=== PATIENT | female | born 1980 | race Caucasian/White ===

== ENCOUNTER 2017-10-04 17:43 | Emergency (ER) | payer OTHER ==
[~2017-10-04] VITALS: Ht 167.6 cm; Wt 68.0 kg
[2017-10-04 17:46] VITALS: BP 139/88; PULSE 68; RESP 18; TEMP 98.3; O2SAT 98
[2017-10-04] MEDS ORDERED: DIAZ5TAB PO (21:00)
[2017-10-04] MEDS ORDERED: OXYC1CAP PO (21:00)
[2017-10-04] MEDS ORDERED: TOPA50TA7 PO (21:00)
[2017-10-04] MEDS ORDERED: SODIUM CHLOR 0.9% 1000 ML INJ 1,000 ML IV ONE (21:02)
--- NOTE | 2017-10-04 21:08 | PD ---
HPI Chief Complaint: Headache Time Seen by Provider: 20:56 Travel History International Travel<30 days: No Contact w/Intl Traveler<30days: No Traveled to known affect area: No History of Present Illness HPI This is a 37-year-old female with history of migraines who presents for evaluation of the same. She reports that throughout the day today she has had a right sided frontal throbbing constant headache, consistent with her migraines but worse than usual. She tried using her regular medications including oxycodone, tenacity and, butalbital as well as her regular maintenance Topamax however her migraine persisted and this is what prompted evaluation. She reports that she has had a 30 year history of migraines, approximately 5 times a month, usually worse during her menstrual period. She reports that she is currently completing her menstrual period. She endorses associated nausea, multiple episodes of emesis as well as photophobia, phonophobia. Denies any visual ROS, recent illness. Currently on vacation from [place]. No other complaints at this time. [facility] Past Medical History Headaches: Yes Immunizations Current: Yes Migraines: Yes Tetanus Vaccination: Unknown Influenza Vaccination: No ?: Not LMP: 318 Past Surgical History Surgical History: No Previous Surgery Social History Alcohol Use: No Tobacco Use: No Substance Use: No Allergies-Medications (Allergen,Severity, Reaction): Coded Allergies: No Known Allergies (Verified Allergy, Unknown, 10/04/17) Reported Meds & Prescriptions Reported Meds & Active Scripts Active Zofran (Ondansetron HCl) 4 Mg Tab 4 Mg PO Q6HR PRN Reported Diazepam 5 Mg Tab 5 Mg PO BID PRN Oxycodone (Oxycodone HCl) 5 Mg Cap 5 Mg PO Q4H PRN Topamax (Topiramate) 50 Mg Tab 50 Mg PO BID Review of Systems Except as stated in HPI: all other systems reviewed are Neg Physical Exam Narrative GENERAL: Well-developed well-nourished female no acute distress sitting in a darkened room SKIN: Warm and dry. HEAD: Atraumatic. Normocephalic. EYES: Pupils equal and round reactive to light extraocular muscles are intact. No scleral icterus. No injection or drainage. ENT: No nasal bleeding or discharge. Mucous membranes pink and moist. NECK: Trachea midline. No JVD. CARDIOVASCULAR: Regular rate and rhythm. No murmur appreciated. RESPIRATORY: No accessory muscle use. Clear to auscultation. Breath sounds equal bilaterally. GASTROINTESTINAL: Abdomen soft, non-tender, nondistended. Hepatic and splenic margins not palpable. MUSCULOSKELETAL: No obvious deformities. No clubbing. No cyanosis. No edema. NEUROLOGICAL: Awake and alert. No obvious cranial nerve deficits. Motor grossly within normal limits. Normal speech. PSYCHIATRIC: Appropriate mood and affect; insight and judgment normal. Data Data Last Documented VS Vital Signs Date Time Temp Pulse Resp B/P (MAP) Pulse Ox O2 Delivery O2 Flow Rate FiO2 10/04/17 17:46 98.3 68 18 139/88 (105) 98 Orders Orders Complete Blood Count With Diff (10/04/17 21:02) Basic Metabolic Panel (Bmp) (10/04/17 21:02) Ed Urine Pregnancytest Poc (10/04/17 21:02) Iv Access Insert/Monitor (10/04/17 21:02) Ketorolac Inj (Toradol Inj) (10/04/17 21:15) Diphenhydramine Inj (Benadryl Inj) (10/04/17 21:15) Metoclopramide Inj (Reglan Inj) (10/04/17 21:15) Sodium Chlor 0.9% 1000 Ml Inj (Ns 1000 M (10/04/17 21:02) Methylprednisolone So Succ Inj (Solumedr (10/04/17 21:15) Labs Laboratory Tests Test 10/04/17 21:15 White Blood Count 12.4 TH/MM3 Red Blood Count 4.16 MIL/MM3 Hemoglobin 13.4 GM/DL Hematocrit 39.5 % Mean Corpuscular Volume 94.9 FL Mean Corpuscular Hemoglobin 32.3 PG Mean Corpuscular Hemoglobin Concent 34.1 % Red Cell Distribution Width 12.6 % Platelet Count 282 TH/MM3 Mean Platelet Volume 7.6 FL Neutrophils (%) (Auto) 85.7 % Lymphocytes (%) (Auto) 11.2 % Monocytes (%) (Auto) 2.7 % Eosinophils (%) (Auto) 0.1 % Basophils (%) (Auto) 0.3 % Neutrophils # (Auto) 10.6 TH/MM3 Lymphocytes # (Auto) 1.4 TH/MM3 Monocytes # (Auto) 0.3 TH/MM3 Eosinophils # (Auto) 0.0 TH/MM3 Basophils # (Auto) 0.0 TH/MM3 CBC Comment DIFF FINAL Differential Comment Blood Urea Nitrogen 15 MG/DL Creatinine 0.98 MG/DL Random Glucose 110 MG/DL Calcium Level 8.0 MG/DL Sodium Level 140 MEQ/L Potassium Level 3.6 MEQ/L Chloride Level 110 MEQ/L Carbon Dioxide Level 21.6 MEQ/L Anion Gap 8 MEQ/L Estimat Glomerular Filtration Rate 64 ML/MIN [facility] Medical Decision Making Medical Screen Exam Complete: Yes Emergency Medical Condition: Yes Medical Record Reviewed: Yes Differential Diagnosis Migraine, tension headache, subarachnoid hemorrhage, dehydration, electrolyte abnormality, sinusitis Narrative Course History is consistent with migraine headache. The patient will be given IV fluids, Solu-Medrol, Toradol, Reglan, Benadryl. Basic lab work, urine test have been ordered. CBC reveals a WBC count of 12.4, BMP reveals a glucose of 110, calcium 8, otherwise unremarkable. Upon reexamination the patient feels improved, her symptoms have resolved. She will be discharged with a short course of antiemetic medication. Diagnosis Primary Impression: Migraine Additional Instructions: Medication as needed for nausea. Stay well hydrated and well-nourished, get plenty rest. Follow-up with your primary care physician and return for any emergent medical conditions. Med/Other Pt SpecificInfo: Prescription(s) given Scripts Ondansetron (Zofran) 4 Mg Tab 4 MG PO Q6HR Y for NAUSEA OR VOMITING, #20 TAB 0 Refills Prov: Ludin Barrett MD 10/04/17 Disposition: 01 DISCHARGE HOME Condition: Stable Willard Jimenez Oct 04, 2017 21:08
[2017-10-04] MEDS ORDERED: KETOROLAC TROMETHAMINE 30 MG/ML (IVP) VIAL IVP ONE (21:15)
[2017-10-04] MEDS ORDERED: METOCLOPRAMIDE HCL 10 MG/2 ML VIAL IVP ONE (21:15)
[2017-10-04] MEDS ORDERED: methylPREDNISolone SOD SUCC 125 MG/2 ML VIAL IV PUSH ONE (21:15)
[2017-10-04] MEDS ORDERED: diphenhydrAMINE HCL 50 MG/ML VIAL IVP ONE (21:15)
[2017-10-04 21:28] LABS: AUTOMATED NEUTROPHIL # 10.6 TH/MM3 (1.8-7.7); BASOPHIL % 0.3 % (0.0-2.0); EOSINOPHIL % 0.1 % (0.0-4.0); HEMATOCRIT 39.5 % (35.0-46.0); HEMOGLOBIN 13.4 GM/DL (11.6-15.3); LYMPH % 11.2 % (9.0-44.0); LYMPHOCYTE # 1.4 TH/MM3 (1.0-4.8); MEAN CELL VOLUME 94.9 FL (80.0-100.0); MEAN CORPUSCULAR HEMOGLOBIN 32.3 PG (27.0-34.0); MEAN CORPUSCULAR HGB CONC 34.1 % (32.0-36.0); MEAN PLATELET VOLUME 7.6 FL (7.0-11.0); MONO % 2.7 % (0.0-8.0); MONOCYTE # 0.3 TH/MM3 (0-0.9); NEUT % 85.7 % (16.0-70.0); PLATELET COUNT 282 TH/MM3 (150-450); RED BLOOD COUNT 4.16 MIL/MM3 (4.00-5.30); RED CELL DISTRIBUTION WIDTH 12.6 % (11.6-17.2); WHITE BLOOD COUNT 12.4 TH/MM3 (4.0-11.0)
[2017-10-04 21:45] LABS: BICARBONATE 21.6 MEQ/L (21.0-32.0); CREATININE 0.98 MG/DL (0.50-1.00)
[2017-10-04] MEDS ORDERED: ZOFR4TAB PO (21:50)
[2017-10-04 22:30] VITALS: RESP 20
== END 2017-10-04 23:36 | disposition home or self-care (01) ==
LOC: NEPD 17:43
DX: G43.909 Migraine, unspecified, not intractable, without status migrainosus (principal)
CPT/HCPCS: 80048; 84703; 85025; 96361; 96374; 96375; 99284; J1200; J1885; J2765; J2930; J7030